=== PATIENT | male | born 1950 | race Caucasian/White ===

== ENCOUNTER → 2023-11-09 08:14 | Outpatient (REF) | payer MEDICARE, SELFPAY ==
[2023-11-09 09:22] LABS: % Basophils 0.5 % (0-2); % Eosinophils 5.4 % (0-6); % Immature Granulocytes 0.3 % (0-0.5); % Lymphocytes 32.8 % (20.5-51.1); Absolute Eosinophils 0.3 10^3/uL (0-0.7); Absolute Monocytes 0.7 10^3/uL (0.1-0.6); Hematocrit 43.9 % (39.0-52.0); Hemoglobin 14.7 g/dL (13.0-18.0); Mean Corp Hgb Conc. 33.5 g/dL (33.0-37.0); Mean Corpuscular Hgb 32.1 pg (27.0-31.0); Mean Corpuscular Volume 95.9 fL (80.0-94.0); Mean Platelet Volume 10.1 fL (7.4-10.4); Nucleated Red Blood Cells % 0 % (-); Platelet Count 200 10^3/uL (130-400); Red Blood Cell Count 4.58 10^6/uL (4.70-6.10); White Blood Cell Count 6.2 10^3/uL (4.8-10.8)
[2023-11-09 09:51] LABS: Urine Albumin Negative (Neg - Trace); Urine Bilirubin Negative (Negative); Urine Character Clear (Clear); Urine Color Yellow; Urine Glucose Negative (Negative); Urine Ketone Negative (Negative); Urine Leukocyte Negative (Negative); Urine Nitrite Negative (Negative); Urine Occult Blood Negative (Negative); Urine Urobilinogen Negative (Neg - 1+)
[2023-11-09 10:29] LABS: Vitamin D, 25-OH*** 27.3 ng/mL (30-80)
[2023-11-09 10:38] LABS: ALT (SGPT) 25 U/L (0-50); AST (SGOT) 35 U/L (17-59); Albumin 4.1 g/dl (3.5-5.0); Alkaline Phosphatase 62 U/L (38-126); Blood Urea Nitrogen 16 mg/dl (9-20); Calcium 9.4 mg/dl (8.4-10.2); Carbon Dioxide 27 mmol/L (22-30); Chloride 107 mmol/L (98-107); Glucose 105 mg/dl (70-99); HDL Cholesterol 54 mg/dl; LDL Cholesterol, Calculated 94 mg/dl; Sodium 140 mmol/L (135-145); Total Bilirubin 0.6 mg/dl (0.2-1.3); Total Cholesterol 165 mg/dl (50-199); Total Protein 6.6 g/dl (6.3-8.2); Triglyceride 88 mg/dl (10-149); Very Low Density Lipoprotein 17 mg/dl (0-30); eGFR > 60.00
[2023-11-09 10:43] LABS: PSA, Total - Screen 1.93 ng/ml (0.0-4.0); Potassium 5.2 mmol/L (3.5-5.1); TSH Reflex To Free T4 1.11 uIU/ml (0.47-4.68)
[2023-11-09 10:44] LABS: Glycohemoglobin (HgbA1c) 5.4 % (4.0-5.6)
== END ==
LOC: REG 08:14
PROVIDERS: ATTENDING PHYSICIAN Nurse Practitioner Family; FAMILY PHYSICIAN Internal Medicine
DX: Z76.89 Persons encountering health services in other specified circumstances (principal); Z01.89 Encounter for other specified special examinations; Z12.5 Encounter for screening for malignant neoplasm of prostate; E55.9 Vitamin D deficiency, unspecified; R73.01 Impaired fasting glucose; Z86.010 Personal history of colon polyps; Z87.438 Personal history of other diseases of male genital organs
CPT/HCPCS: 36415; 80053; 80061; 81003; 82306; 83036; 84443; 85025; G0103

== ENCOUNTER → 2023-11-10 09:58 | Outpatient (REF) | payer MEDICARE, SELFPAY ==
[2023-11-10 11:59] LABS: Blood Urea Nitrogen 19 mg/dl (9-20); Calcium 9.5 mg/dl (8.4-10.2); Carbon Dioxide 26 mmol/L (22-30); Chloride 105 mmol/L (98-107); Glucose 89 mg/dl (70-99); Potassium 4.8 mmol/L (3.5-5.1); Sodium 137 mmol/L (135-145); eGFR > 60.00
== END ==
LOC: REG 09:58
PROVIDERS: ATTENDING PHYSICIAN Nurse Practitioner Family
DX: R89.9 Unspecified abnormal finding in specimens from other organs, systems and tissues (principal)
CPT/HCPCS: 36415; 80048

== ENCOUNTER 2024-06-23 20:02 | Emergency (ER) | payer MEDICARE, SELFPAY ==
[2024-06-23 20:04] VITALS: BP 139/74
[2024-06-23 20:24] LABS: Urine Albumin Negative (Neg - Trace); Urine Bilirubin Negative (Negative); Urine Character Slightly Cloudy (Clear); Urine Color Yellow; Urine Glucose Negative (Negative); Urine Ketone Negative (Negative); Urine Leukocyte 3+ (Negative); Urine Nitrite Negative (Negative); Urine Occult Blood 2+ (Negative); Urine Specific Gravity 1.015 (<1.030); Urine Urobilinogen Negative (Neg - 1+)
[2024-06-23 20:37] LABS: Urine Bacteria Moderate (Negative); Urine Squamous Cell 0-2 /LPF (Few); Urine White Cell 30-40 /HPF (0-5)
--- NOTE | 2024-06-23 21:12 | ED.GENMED ---
History of Present Illness
General
Chief Complaint: Urinary Symptoms
Source: patient and spouse
Exam Limitations: none
Time Seen by Provider: 06/23/24 21:01
Nursing documentation reviewed up to this point in time: agreed with
History of Present Illness
History of Present Illness:
74-year male presents with dysuria and frequency onset earlier today, some chills, saw his urologist a few days ago was not instrumented but did have a digital exam, no prior UTI, no flank pain,
Past History
Past History
ED Past Medical History: None
ED Past Surgical History: None
Social History
Tobacco: Non-smoker
Alcohol: None
Drug: None
Personal:
Living: with family
Employment: Retired
Review of Systems
Review of Systems
All Other Systems: Not applicable
Constitutional: Reports chills
EENT: Reports no symptoms
Respiratory: Reports no symptoms
Cardiac: Reports no symptoms
: Reports dysuria, frequency and urgency; Denies flank pain, incontinence or difficulty voiding
Phy Exam
Physical Exam
Physical Exam:
Physical Exam
General: no apparent distress, not acutely ill
Neck: No jaw
Heart: s1/s2 regular rate and rhythm, no murmur. equal radial pulses.
Lungs: no acute respiratory distress.
Abdomen: No CVA tender
Neuro: alert and oriented. no focal neurological deficits
Skin: no rash
Psychiatric: well kept. interactive and cooperative
Extremities: no edema.
Course
Orders/Labs/Results
Orders:
Orders
06/23/24 20:11
Urinalysis Reflex To Culture Urgent
Date Specimen was Collected: 06/23/24
Time Specimen was Collected: 20:07
Urine Microscopic Reflex Cult Urgent
Urine Culture Urgent
REGINO Source: U
Specimen Description:
Date Specimen was Collected: 06/23/24
Time Specimen was Collected: 20:07
06/23/24 21:09
Acetaminophen [Tylenol] 650 mg PO NOW STA
LevoFLOXacin [Levaquin] 500 mg PO NOW STA
Phenazopyridine HCl [Pyridium] 200 mg PO NOW STA
Abnormal Lab Results
06/23/24
20:11
Ur Occult Blood Reflex 2+ A
(Negative)
Leukocyte Esterase Rfl 3+ A
(Negative)
Urine RBC 7-10 A /HPF
(0-2)
Urine WBC (Reflex) 30-40 A /HPF
(0-5)
Urine Bacteria (Reflex) Moderate A
(Negative)
Vital Signs
Initial and Last Documented VS:
Initial Vital Signs
Temp Pulse Resp BP Pulse Ox
98.2 F 98 20 139/74 105
06/23/24 20:04 06/23/24 20:04 06/23/24 20:04 06/23/24 20:04 06/23/24 20:04
Last Documented Vital Signs
Temp Pulse Resp BP Pulse Ox
98.2 F 98 20 139/74 105
06/23/24 20:04 06/23/24 20:04 06/23/24 20:04 06/23/24 20:04 06/23/24 20:04
MDM/Problems Addressed
Differential Diagnosis Includes:
UTI cystitis upper tract disease no history of stone
MDM/Problems Addressed:
UTI
*Pulse Oximetry
Patient hypoxic: no
*Critical Care Note
Total Time (30-74mins, 75-104mins- exclusive of procedures): Not Applicable
Update Note
Update Note:
Update, patient with a UTI symptoms will treat with extended course of prostatitis apparently did have a MANINDER recently
ED Attending Note
-
Portions of this chart may have been created with voice recognition software.� Occasional wrong word or��sound alike� substitutions may have occurred due to the inherent limitations of voice recognition software.
Discharge Plan
Departure
Patient Disposition: Home (Routine Discharge)
Date of Disposition: 06/23/24
Time of Disposition: 21:10
Patient with high blood pressure during this ER visit?: No
Condition: Good
Discharge Problem:
Acute UTI
Instructions: Urinary Tract Infection, Adult (DC)
Prescriptions:
New
levofloxacin 250 mg tablet
250 mg PO DAILY 10 Days Qty: 14 0RF
phenazopyridine [Pyridium] 200 mg tablet
200 mg PO Q8H PRN (Reason: urinary pain) Qty: 5 0RF
Interventions
Interventions:
*General Assessment Last Done: 06/23/24 20:04
Discharge Date and Time
Print Language: SCOTTISH
[2024-06-23] MEDS: Pyridium 200 MG PO (21:22)
[2024-06-23] MEDS: LEVAQUIN 500 MG PO (21:22)
[2024-06-23] MEDS: TYLENOL 650 MG PO (21:22)
== END 2024-06-23 21:31 | disposition home or self-care (01) ==
LOC: EMR 20:02
PROVIDERS: EMERGENCY PHYSICIAN Emergency Medicine; FAMILY PHYSICIAN Internal Medicine
DX: N39.0 Urinary tract infection, site not specified (principal)
CPT/HCPCS: 99282; 81003; 81015; 87086; 87088; 87186

== ENCOUNTER → 2024-07-04 09:09 | Outpatient (REF) | payer MEDICARE, SELFPAY ==
[2024-07-04 10:32] LABS: Urine Albumin Negative (Neg - Trace); Urine Bilirubin Negative (Negative); Urine Character Clear (Clear); Urine Color Yellow; Urine Glucose Negative (Negative); Urine Ketone Negative (Negative); Urine Leukocyte 1+ (Negative); Urine Nitrite Negative (Negative); Urine Occult Blood 1+ (Negative); Urine Specific Gravity 1.015 (<1.030); Urine Urobilinogen Negative (Neg - 1+)
[2024-07-04 11:48] LABS: Urine Mucus Few; Urine Squamous Cell 0-2 /LPF (Few)
[2024-07-04 11:49] LABS: Urine Amorphous Seen
[2024-07-04 11:50] LABS: Urine Red Blood Cell 0-2 /HPF (0-2)
== END ==
LOC: REG 09:09
PROVIDERS: ATTENDING PHYSICIAN Nurse Practitioner Family; FAMILY PHYSICIAN Internal Medicine
DX: N30.00 Acute cystitis without hematuria (principal); Z87.438 Personal history of other diseases of male genital organs
CPT/HCPCS: 81003; 81015; 87086

== ENCOUNTER 2024-12-05 06:32 | Day surgery (SDC) | payer MEDICARE, SELFPAY | END 2024-12-05 12:13 | disposition home or self-care (01) | LOC: GI 06:32 | PROVIDERS: ATTENDING PHYSICIAN Specialist; FAMILY PHYSICIAN Internal Medicine | DX: Z12.11 Encounter for screening for malignant neoplasm of colon (principal); K64.8 Other hemorrhoids; K57.30 Diverticulosis of large intestine without perforation or abscess without bleeding; D12.0 Benign neoplasm of cecum; D12.2 Benign neoplasm of ascending colon; D12.3 Benign neoplasm of transverse colon; D12.4 Benign neoplasm of descending colon; K63.5 Polyp of colon; Z80.0 Family history of malignant neoplasm of digestive organs; Z86.0101 Personal history of adenomatous and serrated colon polyps | CPT/HCPCS: 45380; 88305 ==